=== PATIENT | male | born 1935 | race Caucasian/White ===

== ENCOUNTER 2020-01-01 10:52 | Observation (INO) | payer OTHER ==
[~2020-01-01] VITALS: Ht 177.8 cm; Wt 79.8 kg
[2020-01-01 11:25] LABS: BASOPHILS ABSOLUTE AUTO 0.02 K/mm3 (0.00-0.23); BASOPHILS PERCENT AUTO 0 % (0-2); EOSINOPHILS ABSOLUTE AUTO 0.23 K/mm3 (0.00-0.68); EOSINOPHILS PERCENT AUTO 3 % (0-6); Hematocrit 47.1 % (37.0-53.0); Hemoglobin 15.6 g/dL (13.5-17.5); IMMATURE GRAN ABSOLUTE AUTO 0.02 K/mm3 (0.00-0.10); IMMATURE GRAN PERCENT AUTO 0 % (0-1); LYMPHOCYTES PERCENT AUTO 19 % (21-46); MONOCYTES ABSOLUTE AUTO 0.72 K/mm3 (0.16-1.47); MONOCYTES PERCENT AUTO 10 % (4-13); Mean Corpuscular HGB 32.6 pg (26.0-34.0); Mean Corpuscular HGB Conc 33.1 g/dL (31.5-36.5); Mean Corpuscular Volume 98 fL (80-100); Mean Platelet Volume 9.8 fL (9.1-12.4); NEUTROPHILS ABSOLUTE AUTO 5.11 K/mm3 (1.96-9.15); NEUTROPHILS PERCENT AUTO 68 % (41-73); Platelet Count 233 K/mm3 (150-400); RDW Coefficient Variation 12.3 % (11.7-14.2); RDW Standard Deviation 44.4 fL (35.1-46.3); Red Blood Cell Count 4.79 M/mm3 (4.30-5.90)
[2020-01-01 11:44] LABS: Alanine Aminotransfer (ALT/SGP 38 U/L (12-78); Albumin, Blood 3.4 g/dL (3.4-5.0); Albumin/Globulin Ratio 0.8 (0.8-1.8); Alk Phos 90 U/L (50-136); Anion Gap 5 mmol/L (6-16); Aspartate Aminotrans (AST/SGOT 32 U/L (12-37); Bilirubin, Total 0.8 mg/dL (0.1-1.0); Blood Urea Nitrogen 16 mg/dL (8-24); CO2, Blood 29 mmol/L (21-32); Calcium, Blood 8.9 mg/dL (8.5-10.1); Chloride, Blood 106 mmol/L (98-108); Creatinine, Blood 0.94 mg/dL (0.60-1.20); Globulin, Blood 4.1 g/dL (2.2-4.0); Glomerular Filtration Rate >60 (60-); Glucose, Blood 117 mg/dL (70-99); International Normalized Ratio 1.01; Potassium, Blood 4.1 mmol/L (3.5-5.5); Prothrombin Time Results 10.8 Sec (9.7-11.5); Sodium, Blood 140 mmol/L (136-145); Total Protein, Blood 7.5 g/dL (6.4-8.2); Troponin I 0.255 ng/mL (0.000-0.040)
[2020-01-01] MEDS ORDERED: ELIQUIS5 MG PO (15:56)
[2020-01-01] MEDS ORDERED: DONEPEZIL HCL10 MG PO (17:00)
[2020-01-01] MEDS ORDERED: METO25 PO (17:01)
[2020-01-01] MEDS ORDERED: AMLO10 PO (17:03)
[2020-01-01] MEDS ORDERED: OMEP20ER PO (17:03)
[2020-01-01] MEDS ORDERED: Vitamin D2000 UNIT PO (17:04)
[2020-01-01] MEDS ORDERED: TOCO1000 PO (17:05)
[2020-01-01] MEDS ORDERED: B-121000 MC3 PO (17:05)
[2020-01-01] MEDS ORDERED: FERSU300 PO (17:06)
[2020-01-01] MEDS ORDERED: C COMPLEX1000 M1 PO (17:06)
--- NOTE | 2020-01-01 18:35 | NUR ---
ASSUMED CARE: PT ARRIVED FROM ED WITH HEPARIN GTT RUNNING. VERIFIED DOSE. DENIES CP AT THIS TIME. CALL TO BROOKE TO SEE IF CARDIOLOGY CONSULT IS NEEDED. BROOKE STATES TO TREND TROP FIRST PRIOR TO CONSULT. ORDERED [facility] COVERAGE DUE TO DIABETES HISTORY. NO ACUTE NEEDS A THIS TIME
[2020-01-01] MEDS ORDERED: MEMA10 PO (19:58)
--- NOTE | 2020-01-02 07:30 | NUR ---
ASSUMED PATIENT CARE. PATIENT SITTING COMFORTABLY IN BED, NO SIGNS OF ACUTE DISTRESS. CONVERSING WITH NURSING STAFF, JUAN.
--- NOTE | 2020-01-02 07:34 | NUR ---
patient admitted for NSTEMI. Patient's chest pain improved overnight and he claims that he is feeling much better this morning. Troponins remain stable but one is pending to be drawn. No acute events overnight or significant changes besides the improvement of the chest pain. No other concerns at this time.
[2020-01-02 08:31] LABS: BASOPHILS ABSOLUTE AUTO 0.04 K/mm3 (0.00-0.23); BASOPHILS PERCENT AUTO 0 % (0-2); EOSINOPHILS ABSOLUTE AUTO 0.22 K/mm3 (0.00-0.68); EOSINOPHILS PERCENT AUTO 2 % (0-6); Hematocrit 47.2 % (37.0-53.0); IMMATURE GRAN ABSOLUTE AUTO 0.02 K/mm3 (0.00-0.10); IMMATURE GRAN PERCENT AUTO 0 % (0-1); LYMPHOCYTES ABSOLUTE AUTO 0.99 K/mm3 (0.84-5.20); LYMPHOCYTES PERCENT AUTO 11 % (21-46); MONOCYTES ABSOLUTE AUTO 0.76 K/mm3 (0.16-1.47); MONOCYTES PERCENT AUTO 8 % (4-13); Mean Corpuscular HGB Conc 33.9 g/dL (31.5-36.5); Mean Corpuscular Volume 97 fL (80-100); Mean Platelet Volume 9.6 fL (9.1-12.4); NEUTROPHILS ABSOLUTE AUTO 7.22 K/mm3 (1.96-9.15); NEUTROPHILS PERCENT AUTO 78 % (41-73); Platelet Count 220 K/mm3 (150-400); RDW Coefficient Variation 12.1 % (11.7-14.2); RDW Standard Deviation 43.5 fL (35.1-46.3); Red Blood Cell Count 4.85 M/mm3 (4.30-5.90); White Blood Cell Count 9.25 K/mm3 (4.00-11.30)
[2020-01-02 08:58] LABS: Anion Gap 6 mmol/L (6-16); Blood Urea Nitrogen 15 mg/dL (8-24); Bun/Creatinine Ratio 16.3 (12.0-20.0); CHOL/HDL RATIO 2.9; CO2, Blood 25 mmol/L (21-32); Calcium, Blood 8.8 mg/dL (8.5-10.1); Chloride, Blood 108 mmol/L (98-108); Cholesterol 195 mg/dL (50-200); Creatinine, Blood 0.92 mg/dL (0.60-1.20); Glomerular Filtration Rate >60 (60-); Glucose, Blood 131 mg/dL (70-99); HDL Cholesterol 68 mg/dL (>39); LDL/HDL RATIO 1.7; Low Density Lipoprotein Chol 115 mg/dL (0-110); Sodium, Blood 139 mmol/L (136-145); Triglycerides 60 mg/dL (30-160); Troponin I 0.216 ng/mL (0.000-0.040); Very Low Density Lipoprot Chol 12 mg/dL (6-32)
--- NOTE | 2020-01-02 11:49 | NUR ---
PATIENT WOULD LIKE TO LEAVE SAWYERDR. MARTINES NOTIFIED. PATIENT REFUSES TELEMETRY, PATIENT REFUSES ECHO AT BEDSIDE. PATIENT DOES NOT COMPLAIN OF CHEST PAIN, NO SIGNS OF ACUTE DISTRESS, WCTM.
[2020-01-02] MEDS ORDERED: Aspirin EC81 MG PO (13:14)
[2020-01-02] MEDS ORDERED: Vitamin D2000 UNIT PO (13:14)
[2020-01-02] MEDS ORDERED: Isosorbide Mono30 MG PO (13:15)
--- NOTE | 2020-01-02 14:01 | NUR ---
PATIENT PROVIDED DISCHARGE INFO PER ALYSA PINA.
== END 2020-01-02 13:30 | disposition home or self-care (01) ==
LOC: ER 10:52 → PCU 10:53
PROVIDERS: Nurse Practitioner Acute Care; Student in an Organized Health Care Education/Training Program; ADMIT Internal Medicine
DX: R07.89 Other chest pain (principal); I48.91 Unspecified atrial fibrillation; R55 Syncope and collapse; I10 Essential (primary) hypertension; E78.5 Hyperlipidemia, unspecified; E11.9 Type 2 diabetes mellitus without complications; K21.9 Gastro-esophageal reflux disease without esophagitis; F03.90 Unspecified dementia, unspecified severity, without behavioral disturbance, psychotic disturbance, mood disturbance, and anxiety; Z86.73 Personal history of transient ischemic attack (TIA), and cerebral infarction without residual deficits; Z87.891 Personal history of nicotine dependence
CPT/HCPCS: 36415; 70450; 71045; 80048; 80053; 80061; 82947; 83735; 83880; 84443; 84484; 85025; 85610; 85730; 93005; 93010; 96374; 96376; 99285-25; A9270-GY; G0378; J1644

== ENCOUNTER 2020-05-12 13:38 | Inpatient (IN) | payer OTHER, MEDICARE ==
[~2020-05-12] VITALS: Ht 175.3 cm; Wt 90.0 kg
[~2020-05-12 13:38] MED LIST: AMLO10 PO; Aspirin EC81 MG PO; B-121000 MC3 PO; C COMPLEX1000 M1 PO; DONEPEZIL HCL10 MG PO; ELIQUIS5 MG PO; FERSU300 PO; Isosorbide Mono30 MG PO; MEMA10 PO; METO25 PO; OMEP20ER PO; TOCO1000 PO; Vitamin D2000 UNIT PO
[2020-05-12 14:38] LABS: BASOPHILS ABSOLUTE AUTO 0.04 K/mm3 (0.00-0.23); BASOPHILS PERCENT AUTO 1 % (0-2); EOSINOPHILS ABSOLUTE AUTO 0.06 K/mm3 (0.00-0.68); EOSINOPHILS PERCENT AUTO 1 % (0-6); Hematocrit 49.6 % (37.0-53.0); Hemoglobin 15.6 g/dL (13.5-17.5); IMMATURE GRAN ABSOLUTE AUTO 0.02 K/mm3 (0.00-0.10); IMMATURE GRAN PERCENT AUTO 0 % (0-1); LYMPHOCYTES ABSOLUTE AUTO 1.13 K/mm3 (0.84-5.20); LYMPHOCYTES PERCENT AUTO 16 % (21-46); MONOCYTES PERCENT AUTO 9 % (4-13); Mean Corpuscular HGB 31.1 pg (26.0-34.0); Mean Corpuscular HGB Conc 31.5 g/dL (31.5-36.5); Mean Corpuscular Volume 99 fL (80-100); Mean Platelet Volume 9.7 fL (9.1-12.4); NEUTROPHILS ABSOLUTE AUTO 5.11 K/mm3 (1.96-9.15); NEUTROPHILS PERCENT AUTO 73 % (41-73); Platelet Count 242 K/mm3 (150-400); RDW Coefficient Variation 14.5 % (11.7-14.2); Red Blood Cell Count 5.01 M/mm3 (4.30-5.90); White Blood Cell Count 6.96 K/mm3 (4.00-11.30)
[2020-05-12 15:02] LABS: Anion Gap 4 mmol/L (6-16); Blood Urea Nitrogen 21 mg/dL (8-24); Bun/Creatinine Ratio 17.2 (12.0-20.0); CO2, Blood 26 mmol/L (21-32); Calcium, Blood 8.9 mg/dL (8.5-10.1); Chloride, Blood 110 mmol/L (98-108); Creatinine, Blood 1.22 mg/dL (0.60-1.20); Glomerular Filtration Rate >60 (60-); Glucose, Blood 105 mg/dL (70-99); Sodium, Blood 140 mmol/L (136-145)
[2020-05-12 16:20] LABS: International Normalized Ratio 1.22; Prothrombin Time Results 12.9 Sec (9.7-11.5)
[2020-05-12 16:28] LABS: CHOL/HDL RATIO 3.5; Cholesterol 131 mg/dL (50-200); HDL Cholesterol 37 mg/dL (>39); LDL/HDL RATIO 2.2; Low Density Lipoprotein Chol 83 mg/dL (0-110); Triglycerides 57 mg/dL (30-160); Very Low Density Lipoprot Chol 11 mg/dL (6-32)
--- NOTE | 2020-05-12 17:33 | NUR ---
Echocardiogram completed.
--- NOTE | 2020-05-12 18:42 | NUR ---
SHIFT SUMMARY ED ADMIT THIS EVENING. PATIENT SHORT OF BREATH W/ACTIVITY. DENIES CHEST PAIN AND NAUSEA. UP SBA TO BR FOR LINE MANAGEMENT. SETTLED INTO ROOM. ORIENTED BUT FORGETFUL. HEPARIN DRIP RUNNING AT 13 U/KG.
[2020-05-12 22:12] LABS: Adenovirus Not Detected (NOT DETECT); Bordetella pertussis Not Detected (NOT DETECT); Chlamydophila pneumoniae Not Detected (NOT DETECT); Coronavirus 229E Not Detected (NOT DETECT); Coronavirus HKU1 Not Detected (NOT DETECT); Coronavirus NL63 Not Detected (NOT DETECT); Coronavirus OC43 Not Detected (NOT DETECT); Human Metapneumovirus Not Detected (NOT DETECT); Human Rhinovirus/Enterovirus Not Detected (NOT DETECT); Influenza A/2009-H1 Not Detected (NOT DETECT); Influenza A/H1 Not Detected (NOT DETECT); Influenza A/H3 Not Detected (NOT DETECT); Influenza B Not Detected (NOT DETECT); Mycoplasma pneumoniae Not Detected (NOT DETECT); Parainfluenza Virus 1 Not Detected (NOT DETECT); Parainfluenza Virus 2 Not Detected (NOT DETECT); Parainfluenza Virus 3 Not Detected (NOT DETECT); Parainfluenza Virus 4 Not Detected (NOT DETECT); Respiratory Syncytial Virus Not Detected (NOT DETECT); SARS-Cov-2 (COVID-19), BioFire Not Detected (NOT DETECT)
[2020-05-12] MEDS ORDERED: AMLO10 PO (22:21)
[2020-05-12] MEDS ORDERED: Vitamin B-121000 MCG PO (22:21)
[2020-05-12] MEDS ORDERED: Vitamin D2000 UNIT PO (22:21)
[2020-05-12] MEDS ORDERED: DONEPEZIL HCL10 MG PO (22:22)
[2020-05-12] MEDS ORDERED: FERSU300 PO (22:22)
[2020-05-12] MEDS ORDERED: FURO20 PO (22:22)
[2020-05-12] MEDS ORDERED: METO25 PO (22:23)
[2020-05-12] MEDS ORDERED: OMEP20ER PO (22:23)
[2020-05-12] MEDS ORDERED: TOCO1000 PO (22:24)
[2020-05-12] MEDS ORDERED: SULFAMETHOXAZO1 EACH PO (22:24)
[2020-05-12] MEDS ORDERED: ASCO500 PO (22:25)
[2020-05-12] MEDS ORDERED: GINKGO60 MG PO (22:25)
[2020-05-13 02:35] LABS: BASOPHILS ABSOLUTE AUTO 0.04 K/mm3 (0.00-0.23); BASOPHILS PERCENT AUTO 1 % (0-2); EOSINOPHILS ABSOLUTE AUTO 0.12 K/mm3 (0.00-0.68); EOSINOPHILS PERCENT AUTO 2 % (0-6); Hematocrit 50.3 % (37.0-53.0); Hemoglobin 15.6 g/dL (13.5-17.5); IMMATURE GRAN ABSOLUTE AUTO 0.02 K/mm3 (0.00-0.10); IMMATURE GRAN PERCENT AUTO 0 % (0-1); LYMPHOCYTES ABSOLUTE AUTO 1.21 K/mm3 (0.84-5.20); LYMPHOCYTES PERCENT AUTO 16 % (21-46); MONOCYTES PERCENT AUTO 11 % (4-13); Mean Corpuscular HGB 30.8 pg (26.0-34.0); Mean Corpuscular Volume 99 fL (80-100); Mean Platelet Volume 9.8 fL (9.1-12.4); NEUTROPHILS ABSOLUTE AUTO 5.25 K/mm3 (1.96-9.15); NEUTROPHILS PERCENT AUTO 71 % (41-73); Platelet Count 226 K/mm3 (150-400); RDW Coefficient Variation 14.5 % (11.7-14.2); RDW Standard Deviation 52.7 fL (35.1-46.3); Red Blood Cell Count 5.06 M/mm3 (4.30-5.90); White Blood Cell Count 7.44 K/mm3 (4.00-11.30)
[2020-05-13 03:07] LABS: Albumin, Blood 2.9 g/dL (3.4-5.0); Anion Gap 7 mmol/L (6-16); Blood Urea Nitrogen 24 mg/dL (8-24); Bun/Creatinine Ratio 17.5 (12.0-20.0); CO2, Blood 25 mmol/L (21-32); Calcium, Blood 9.2 mg/dL (8.5-10.1); Chloride, Blood 110 mmol/L (98-108); Creatinine, Blood 1.37 mg/dL (0.60-1.20); Glomerular Filtration Rate 53 (60-); Glucose, Blood 102 mg/dL (70-99); Magnesium, Blood 2.4 mg/dL (1.6-2.4); Phosphorus, Blood 4.1 mg/dL (2.5-4.9); Potassium, Blood 4.6 mmol/L (3.5-5.5); Sodium, Blood 142 mmol/L (136-145)
--- NOTE | 2020-05-13 06:15 | NUR ---
SHIFT SUMMARY PT IS AN 84 Y/O MALE, ADMITTED FOR HYPOXEMIC RESPIRATORY FAILURE. HE IS A&O X 3, FORGETFUL. NO C/O ACUTE PAIN, NAUSEA OR SOB, THOUGH PT APPEARS TO HAVE OCCASIONAL INCREASED WORK OF BREATHING. CURRENTLY ON 6L OF O2 VIA NC. PT FINGERTIPS ARE CYANOTIC. PER FINISHING DEPARTMENT SUPERVISOR PT IS IN AFIB IN THE 100S. VITAL SIGNS OTHERWISE STABLE. TROPONIN IS ELEVATED THOUGH TRENDING DOWN, LAST WAS 8.62. PT IS ON A HEPARIN DRIP, CURRENTLY AT 15 U/KG/HR OR 27 ML/HR. NO ACUTE CHANGES IN PT CONDITION NOTED DURING THE NIGHT. WILL CONTINUE TO MONITOR AND TREAT PER EMAR UNTIL HAND OFF TO DAY SHIFT RN.
--- NOTE | 2020-05-13 08:30 | NUR ---
PT PLEASANT COOP A/O TO GENERAL QUESTIONS. DETAILS NOT ABLE. DEMENTIA. 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 RECOGNIZED DAUGHTER, BUT NOT HER . UNABLE TO TELL ME PRESIDENT. QUITE ANVIK. DENIES PAIN, NO SOB WHILE IN BED. FINGERS AND TOES CYANOTIC. CAP REFILL 4-6 SEC. IS AWARE. H/R IRREG, NO MURMER NOTED. HX AFIB. PER TELE AFIB 109. LUNGS CLEAR, RESP EASY, UNLABORED ON 6L O2. BT X4 LAST BM YEST. VOIDS INCONT WITH OCC URINAL USE. SBA TO 1 ASST TO BATHROOM. BED IN LOW POSITION, CALL LITE IN REACH. BED ALARM ON FOR SAFETY.
--- NOTE | 2020-05-13 12:07 | NUR ---
D/C HEPARIN PER DR JOYA
--- NOTE | 2020-05-13 12:12 | NUR ---
CALLED DR SAMANTA BECERRA TO D/C CONT BIOX.
--- NOTE | 2020-05-13 17:19 | NUR ---
PT HAS BEEN PLEASANT AND COOP TODAY. HAS GENERAL ORIENTATION, HAS HARD TIME WITH DETAILS. DENIES PAIN, DENIES CHEST PAIN/PRESSURES. DR DID D/C HEPARIN TODAY. STATES HARM SORE WHERE HEPARIN WAS INFUSING. WRAPPED IN WARM BLANKET. STATES HELPS SOME. DR STARTED XARELTO TODAY. DAUGHTER WAS IN TODAY. VISITED FOR SOME TIME. IS PLEASANT. NO NEW CONSERNS TODAY. BED IN LOW POSITION, CALL LITE IN REACH, BED ALARM ON FOR SAFETY.
--- NOTE | 2020-05-13 19:10 | NUR ---
ASSUMED CARE RECEIVED REPORT FROM ALYSA WHITTAKER. ASSUMED CARE OF PT. PT RESTING COMFORTABLY AT THIS TIME, NO S/S ACUTE DISTRESS NOTED, RESPS E/U, DENIES SOB OR DYSPNEA. DENIES NEEDS. CALL LIGHT, POSSESSIONS IN REACH, BED IN LOW POSITION WITH ALARMS ON. WCTM.
--- NOTE | 2020-05-14 05:48 | NUR ---
SHIFT SUMMARY PT A&O TO SELF, SURROUNDINGS. PLEASANT BUT FORGETFUL AT TIMES, AND ATTEMPTS TO STAND UP BESIDE BED BY SELF TO USE URINAL; EASILY RE-DIRECTABLE. RESTING COMFORTABLY AT THIS TIME, NO S/S ACUTE DISTRESS NOTED, WAS MONITORED EVERY 1-2 HOURS WITH NEEDS MET. VS REVIEWED, WNL, AFEBRILE. 02 SATS STABLE ON 6L/NC. PT DENIES SOB, DYSPNEA. DENIES PAIN OR DISCOMFORT. ENCOURAGED TO ELEVATE BLE ON PILLOWS WHILE IN BED TO DECREASE EDEMA, PT AGREEABLE. DENIES NEEDS AT THIS TIME. CALL LIGHT, POSSESSIONS IN REACH, BED IN LOW POSITION WITH ALARMS ON. WILL CONTINUE TO MONITOR AND PROVIDE CARE UNTIL REPORT GIVEN TO DAY RN.
[2020-05-14 08:44] LABS: BASOPHILS ABSOLUTE AUTO 0.02 K/mm3 (0.00-0.23); BASOPHILS PERCENT AUTO 0 % (0-2); EOSINOPHILS ABSOLUTE AUTO 0.07 K/mm3 (0.00-0.68); EOSINOPHILS PERCENT AUTO 1 % (0-6); Hematocrit 47.6 % (37.0-53.0); Hemoglobin 15.1 g/dL (13.5-17.5); IMMATURE GRAN ABSOLUTE AUTO 0.04 K/mm3 (0.00-0.10); IMMATURE GRAN PERCENT AUTO 1 % (0-1); LYMPHOCYTES ABSOLUTE AUTO 0.93 K/mm3 (0.84-5.20); LYMPHOCYTES PERCENT AUTO 12 % (21-46); MONOCYTES PERCENT AUTO 8 % (4-13); Mean Corpuscular HGB Conc 31.7 g/dL (31.5-36.5); Mean Corpuscular Volume 98 fL (80-100); Mean Platelet Volume 9.3 fL (9.1-12.4); NEUTROPHILS ABSOLUTE AUTO 6.22 K/mm3 (1.96-9.15); NEUTROPHILS PERCENT AUTO 79 % (41-73); Platelet Count 197 K/mm3 (150-400); RDW Coefficient Variation 14.5 % (11.7-14.2); RDW Standard Deviation 52.3 fL (35.1-46.3); Red Blood Cell Count 4.87 M/mm3 (4.30-5.90); White Blood Cell Count 7.88 K/mm3 (4.00-11.30)
[2020-05-14 08:57] LABS: Albumin, Blood 2.6 g/dL (3.4-5.0); Anion Gap 10 mmol/L (6-16); Blood Urea Nitrogen 30 mg/dL (8-24); Bun/Creatinine Ratio 26.5 (12.0-20.0); CO2, Blood 22 mmol/L (21-32); Calcium, Blood 8.6 mg/dL (8.5-10.1); Chloride, Blood 107 mmol/L (98-108); Creatinine, Blood 1.13 mg/dL (0.60-1.20); Glomerular Filtration Rate >60 (60-); Glucose, Blood 93 mg/dL (70-99); Phosphorus, Blood 3.5 mg/dL (2.5-4.9); Potassium, Blood 4.5 mmol/L (3.5-5.5); Sodium, Blood 139 mmol/L (136-145)
[2020-05-14 15:02] LABS: PCO2 Arterial 36.7 mmHg (35-45); PO2 Arterial 76.8 mmHg (80-100); pH Blood Arterial 7.44 (7.35-7.45)
--- NOTE | 2020-05-14 17:30 | NUR ---
Clinical Visit: Pt is alert, oriented. He denies pain, shortness of breath, and anxiety. He has a dusky appearance. Introduced palliative care, role in the hospital. Short visit, as he states that he was napping and asks me to come back in the morning when he is most awake. Agreed to meet tomorrow morning. Reviewed with Dr. Beebe. Pt is agreeable to further treatment of his heart condition. Will remain available and follow up with pt tomorrow morning. Dr. Beebe just updated him on his diagnosis and pt will need continued medical care.
--- NOTE | 2020-05-14 18:13 | NUR ---
PT HAS BEEN AOX3 WITH CONFUSION. PT STARTED SHIFT ON 5L OF O2 AND DR ENGLAND REQUESTED O2 TO BE TITRATED DOWN. PT WAS NOT SHOWING UP WELL WITH ANY OF THE O2 MONITORS, BUT SEEMED TO BE TOLERATING THE TITRATION. PT THEN HAD TAKEN HIS O2 OFF AND AGAIN DENIED SOB AND WAS DOING WELL IN HIS ROOM. DUE TO NOT BEING ABLE TO GET ACCURATE O2 READING DR ENGLAND HAD AN ABG ORDERED AND PT IS DOING WELL ON . PT IS EATING DINNER AT THIS TIME WITH DAUGHTER IN ROOM. WILL CONTINUE TO MONITOR.
--- NOTE | 2020-05-14 19:00 | NUR ---
ASSUMED CARE RECEIVED REPORT FROM ALYSA MON. ASSUMED CARE OF PT. RESTING COMFORTABLY, NO S/S ACUTE DISTRESS NOTED. RESPS E/U. DENIES PAIN OR NEEDS AT THIS TIME. CALL LIGHT, POSSESSIONS IN REACH, BED IN LOW POSITION WITH ALARMS ON. WCTM.
--- NOTE | 2020-05-15 06:15 | NUR ---
SHIFT SUMMARY PT RESTING COMFORTABLY, NO S/S ACUTE DISTRESS NOTED. WAS MONITORED EVERY 1-2 HOURS WITH NEEDS MET. VS REVIEWED, WNL, 02 SATS STABLE ON RA, REFUSING TO WEAR NC. PT HAS BEEN INCREASINGLY CONFUSED T/O NIGHT, PULLING OFF TELE. AMBULATED TO BATHROOM WITH 1 ASSIST AND FWW, TOLERATED WELL. NO ACUTE CHANGES IN HEART RHYTHM REPORTED T/O NIGHT. PT DENIES PAIN OR NEEDS AT THIS TIME. CALL LIGHT, POSSESSIONS IN REACH, BED IN LOW POSITION WITH ALARMS ON. REPORT GIVEN TO YAA Curtis RN.
[2020-05-15 08:49] LABS: Albumin, Blood 2.5 g/dL (3.4-5.0); Anion Gap 7 mmol/L (6-16); Blood Urea Nitrogen 31 mg/dL (8-24); Bun/Creatinine Ratio 27.7 (12.0-20.0); CO2, Blood 26 mmol/L (21-32); Calcium, Blood 8.9 mg/dL (8.5-10.1); Chloride, Blood 109 mmol/L (98-108); Creatinine, Blood 1.12 mg/dL (0.60-1.20); Glomerular Filtration Rate >60 (60-); Glucose, Blood 100 mg/dL (70-99); Magnesium, Blood 2.1 mg/dL (1.6-2.4); Phosphorus, Blood 3.4 mg/dL (2.5-4.9); Potassium, Blood 4.6 mmol/L (3.5-5.5); Sodium, Blood 142 mmol/L (136-145)
[2020-05-15 12:26] LABS: International Normalized Ratio 1.52; Prothrombin Time Results 15.9 Sec (9.7-11.5)
--- NOTE | 2020-05-15 16:31 | NUR ---
Clinical Visit: Pt is alert, oriented. Granddaughter is at bedside. Discussed POLST and advance directives. [facility] - he does not have a POLST form. Instructed on POLST form and this will be sent home for him to complete. Granddaughter is actually in the medical profession and assists with filling POLST forms out all the time. Fax to [place] for pt's advance directive.
--- NOTE | 2020-05-15 17:56 | NUR ---
PT AOX3 TODAY WITH A BIT MORE CONFUSION. PT HAS BEEN GETTING OUT OF MORE AND WAS WANTING TO TAKE HIS GOWN OF A LOT. PT ALSO TOOK APART HIS KPAD LINE WITHOUT KNOWING WHY HE HAD DONE THIS. PT IS A STANDBY ASSIST TO RESTROOM AND NEEDS BED ALARM HE WILL GET UP HOOK TO IV. PT DENIES PAIN OR SOB WILL CONTINUE TO MONITOR CALL LIGHT WITHIN REACH.
--- NOTE | 2020-05-15 19:15 | NUR ---
ASSUMED CARE RECEIVED REPORT FROM ALYSA MON. ASSUMED CARE OF PT. ATTEMPTING TO EXIT BED, RE-DIRECTED BACK TO BED, PT APPEARS INCREASINGLY CONFUSED. SITUATED IN BED AND COVERED C BLANKETS. NO OTHER S/S ACUTE DISTRESS NOTED. HEPARIN DRIP VERIFIED AND ONGOING AT THIS TIME. PT DENIES PAIN OR NEEDS. CALL LIGHT,POSSESSIONS IN REACH, BED IN LOW POSITION WITH ALARMS ON. WCTM.
--- NOTE | 2020-05-16 00:10 | NUR ---
REPORT GIVEN TO ALYSA ACKERMAN. PT TRANSFERRED TO 347. HEPARIN DRIP STOPPED AT THIS TIME, AWAITING INSTRUCTIONS FROM PHARMACY D/T CONTINUED CRITICALLY HIGH APTT, CONTINUE TO MONITOR.
--- NOTE | 2020-05-16 00:27 | NUR ---
PT TRANSFERRED TO ROOM 347 FROM ROOM 355. RECEIVED REPORT FROM ALYSA NUR. PT ASLEEP AT THIS TIME. ON O2 2LPM VIA NC. TELE IN PLACE, AFIB IN 80's. NO C/O PAIN OR ANY DISCOMFORT. PT NPO AFTER MIDNIGHT ORDERED. AWAITING NEW ORDERS FROM PHARMACY REGARDING HEP DRIP.
--- NOTE | 2020-05-16 04:48 | NUR ---
CAMP DISHWASHER SUMMARY PT A&OX3, PLEASANTLY CONFUSED, EASILY REDIRECTABLE. MULTIPLE ATTEMPTS OF BED EXITING AND TAKING OFF TELE STICKERS AND NC. PT ON HEPARIN DRIP ORDERED. NO C/O PAIN OR ANY DISCOMFORT. DENIES CP, TELE AFIB 80's. SOB NOTED WITH EXERTION, PT ON 2LPM OF O2 VIA NC, SATS AT 90-96%. DENIES N&V. PT CALM AND RESTED IN BED AT THIS TIME. BED AT LOWEST POSITION, BED ALARM ON, CALL LIGHT WITHIN REACH.
[2020-05-16 09:34] LABS: Albumin, Blood 2.8 g/dL (3.4-5.0); Anion Gap 7 mmol/L (6-16); Blood Urea Nitrogen 40 mg/dL (8-24); Bun/Creatinine Ratio 35.4 (12.0-20.0); CO2, Blood 29 mmol/L (21-32); Calcium, Blood 9.2 mg/dL (8.5-10.1); Chloride, Blood 106 mmol/L (98-108); Creatinine, Blood 1.13 mg/dL (0.60-1.20); Glomerular Filtration Rate >60 (60-); Glucose, Blood 87 mg/dL (70-99); Magnesium, Blood 2.1 mg/dL (1.6-2.4); Phosphorus, Blood 4.2 mg/dL (2.5-4.9); Potassium, Blood 4.4 mmol/L (3.5-5.5); Sodium, Blood 142 mmol/L (136-145)
--- NOTE | 2020-05-16 16:44 | NUR ---
SHIFT SUMMARY- PT A/O TO PERSON, PLACE AND YEAR. PT VERY IMPUSLIVE, NEEDS FREQUENT REMINDERS. PT SETTING OFF ALARMS, PULLING OFF TELE MULTIPLE TIMES AND UNHOOKING IV AT TIMES. PT PLEASANT AND COOPERATIVE WHEN REDIRECTED AND APPEARS TO UNDERSTAND BUT THEN WILL CONTINUOUSLY REPEAT. PT DENIES ANY PAIN. LS CLEAR, ON RA. DRY COUGH NOTED, PT REPORTS FROM [place]. TELE AFIB WITH PVC'S IN THE 90'S, PT DENIES ANY CHEST PAIN. PT ON HEPARIN GTT. 2+ BLE EDEMA. PLAN IS FOR ANGIO TOMORROW HOWEVER DAUGHTER HAS CONCERNS THAT PT WOULD NOT ACTUALLY WANT THIS DONE, PALLIATIVE CARE IN TALKING WITH PT AND DAUGHTER AT THIS TIME. DAUGHTER REPORTS PT HAS VASCULAR DEMENTIA AND HAS NOT BEEN CARING FOR HIS ANIMALS APROPRIATELY AT HOME, HAS NOT BEEN TAKING HIS MEDICATIONS SINCE NOVEMBER AND DOES NOT THINK HE QUITE UNDERSTANDS THE PROCEDURE. PALLIATIVE CARE NURSE DAE REPORTS SHE WILL UPDATE DR ENGLAND AFTER THERE CONVERSATION. THE DAUGHTER DOES HAVE POA AND THERE IS AN ADVANCED DIRECTIVE IN [facility]ACE FROM THE [facility] THEY ARE REVIEWING AT THIS TIME.
--- NOTE | 2020-05-16 18:27 | NUR ---
PT TRANSITIONED TO COMFORT CARE. DNR CODE STATUS VERIFIED AND PURPLE WRISTBAND APPLIED. TELE DC'D AND HEPARIN GTT STOPPED AT THIS TIME.
--- NOTE | 2020-05-16 18:30 | NUR ---
INITIAL [facility] CARE VISIT AND MEETING WITH PT'S MEDICAL POA, HERMAN VILLATORO. Pt's RN called me to room after leopoldo expressed concern that planned medical intervention and procedure for tomorrow am may not be in agreement with pt's medical POA for healthcare document completed at the [facility]. We received a copy of pt's medical POA this am by fax from the [facility]. I reviewed this with pt's RN and pt's daughter, as well as Dr after my visit. Our current orders for FULL CODE are not in agreement with his AD and leopoldo, requests DNR. Leopoldo is named as his surrogate decision maker with grandNathaly villatoro, as an alternate. Herman phoned both her leopoldo, Nathaly and her brother after our conversation and updated them on current echo findings, etc. All three family members and decision makers are in favor of following pt's advanced directive. A copy of AD placed on pt's chart and a copy was sent to medical records for scanning into EMR. Herman Villatoro demonstrating great cg stress and fatigue. She reports that pt left our hospital AMA last time and had quit taking medications and stopped his normal self care and care of his ranch animals over the past 6-12 months. He has a dx of vascular dementia, not present when he completed his AD. Family has been working on conservRevstr to help care for him, home & his ranch/animals. Pt has vacilated between not letting his daughter on the property to help and demanding she be there and threatening her, per Herman. Mane was admitted in respiratory and congestive heart failure after an acquaintance visited & insisted he be evaluated in ER, brought him in. He currently has a-fib, severe Aortic stenosis & CHF with an EF of 15-20% by echo done here on this admission. RN & leopoldo report that Pt presents well at times. Pt has become increasingly confused today, restless & more difficult to redirect, trying to get out of bed and remove tele and iv at times. I introduced myself to pt but he was not interactive in conversation and watched TV or slept during our visit. He is very hard of hearing but even when he could hear me he did not appear to understand when I asked if he'd like to talk about the care he wanted. He was unaware he was having a angiogram or procedure of any kind tomorrow. After a long conversation re: all of the options and benefits of proceeding with angiogram, conservative medical management or EOL care, Leopoldo and family express that pt just wants to be home, would never want a life vest or agressive tx/intervention prior to his dementia and they are requesting comfort care and assist with a hospice d/c plan when CM are available. Report called to and VO obtained and entered for comfort measures and hospice plan of care. Leopoldo seems relieved. She welcomed a network operations manager visit when offered for both her and her dad. Job Tracer arrived when I was finishing up my visit and explaining changes in orders and what to expect with comfort care, including that additional family could visit if covid screening passed, no further monitoring and testing cardiac function, frequent comfort assessment and treatment of s/s. Leopoldo asked about PO medications and I explained if pt willing and wants to take them, they are ordered and will be offered. Plan to f/u in am for s/s assessment. T/c to CM and message left with request for assist tomorrow with hospice plans for home or [facility]. RN aware of changes/orders and included in discussions t/o my visit.
--- NOTE | 2020-05-16 18:42 | NUR ---
Initial spiritual care note: Met with pt's dtr at bedside. She was tearful and talkative. Fearful that pt is not "saved". We spoke at length about this and she responded well to gentle high school counselor and exploration of bharati. Prayer with dtr. Pt non-hinduism and according to dtr "doesn't want to hear about any of that." Pt happily ate his dinner, totally ignoring our conversation. He appears confused and had to continually be reminded not to get up or pull at lines. Dtr is clearly physically and emotionally exhausted trying to care for her dad, the ranch, and her job. Encouraged going home and resting and assured her of excellent care and attention by [facility] team. We had an easy rapport and I will remain available.
--- NOTE | 2020-05-17 05:37 | NUR ---
SHIFT SUMMARY- PT. COMFORT CARE, PLEASANTLY CONFUSED AND IMPULSIVE T/O THE NIGHT. NO COMPLAINTS THIS SHIFT, SLEPT ON/OFF DURING THE NIGHT. NO APPARENT DISTRESS NOTED. PT. SBA TO BATHROOM, CONT/INCONT. DENIES NEEDS AT THIS TIME. CALL LIGHT WITHIN REACH, SIDE RAILS UPX2, AND BED ALARM ON FOR SAFETY. WILL CONT TO MONITOR.
--- NOTE | 2020-05-17 07:38 | NUR ---
DR DANG NOTIFIED THIS AM THAT PT WENT COMFORT CARE STATUS LAST EVENING, PER DR DANG WILL CONTINUE WITH MEDICAL THERAPY.
--- NOTE | 2020-05-17 08:13 | NUR ---
AM ASSESSMENT- PT A/O TO SELF AND PLACE, UNSURE OF DATE. PT DENIES ANY COMPLAINTS. LS CLEAR, ON RA. 2+ BLE EDEMA NOTED. PT COMFORT CARE AT THIS TIME, DNR WRISTBAND ON RIGHT WRIST. BED ALARM ON, PT RESTING AT THIS TIME.
--- NOTE | 2020-05-17 14:10 | NUR ---
Comfort Care visit - Case conferenced early this am with pt's RN and also Taina YEAGER, who is researching care options and assist thru [facility] as leopoldo had requested. She is reaching out to Leopoldo, Amanda, also. Pt is sitting upright on side of bed with no clothes on. He is slightly restless but per RN mostly pleasantly confused and directable. He did not remember anything re: previously planned procedure. He does not know why he is here but is not distressed about being in the hospital this am. No family at bedside the two times I came by the room. Pt is not reporting pain or distressing s/s and denies pain when asked by nursing staff during assessments. Palliative Care to remain available.
--- NOTE | 2020-05-17 16:38 | NUR ---
SHIFT SUMMARY- PT ON COMFORT CARE. PT HAS BEEN A/O TO PERSON AND PLACE, INCREASED CONFUSION AT TIMES AND NEEDS REDIRECTING BUT PLEASANT WITH CARE. LS CLEAR, ON RA. PT SOB WITH REST AND INCREASED WITH EXERTION, PT POSITIONAL BREATHING AND SITS UP FREQUENTLY. 2+ BLE EDEMA NOTED. PT HAS DENIES ANY PAIN T/O THE DAY. DISCHARGE PLANNING LOOKING [facility]. SBA UP TO BATHROOM, NO OTHER ACUTE CHANGES THIS SHIFT.
--- NOTE | 2020-05-17 17:18 | NUR ---
PT SITTING UP VISITING WITH FAMILY AT BEDSIDE.
--- NOTE | 2020-05-17 17:37 | NUR ---
Spiritual care note: No family present at time of visit. Mr. Lechuga was confused, but calm. He was unable to hold lucid conversation and said very little that I could understand. He said he was tired and smiled. He is not sikhism. He denied pain/concerns and appears well cared-for by nursing. I will remain available to pt and family.
--- NOTE | 2020-05-17 18:52 | NUR ---
PT NOTED TO HAVE INCREASED SOB THIS EVENING, ATTEMPTED TO GET PT TO SIT UP IN RECLINER BUT DID NOT WANT TO. PT SOB WITH REST, TALKING IN SHORT SENTENCES. PRN ROXANOL GIVEN AT THIS TIME. WILL REPORT OFF TO NIGHT RN.
--- NOTE | 2020-05-18 04:46 | NUR ---
SHIFT SUMMARY: PT IS ALERT AND ORIENTED X 2. PT ON COMFORT MEASURES ONLY. PT VISIBLY SHORT OF BREATH ON ONE OCCASION, GAVE PRN MORPHINE FOR AIR HUNGER, SEEMED TO HELP. PT WALKING TO THE BATHROOM ON MULTIPLE OCCASIONS WITH MINIMAL TO NO ASSIST. PT DENIES PAIN, NAUSEA, AND VOMITING. BED IN LOW POSITION, CALL LIGHT WITHIN REACH. WILL REPORT TO DAY NURSE.
--- NOTE | 2020-05-18 08:30 | NUR ---
PT IS ON COMFORT CARE. PT PLEASANT, A/O X2, MAYBE. VERY [place]. OKAY ON BASIC GENERAL QUEST. BUT UNABLE TO GIVE DETAILS. 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 TELLS ME DAUGHTER NAME IS HERMAN. H/R IS IRREG, NO MURMER NOTED. LUNGS CLEAR, RESP EASY, UNLABORED WHEN IN BED, SOB WITH EXERTION. TRIED OXIMETRY TO FIND SATS. UNABLE TO OBTAIN READING. TRIED ON TOES, MULT FINGERS. CYANOTIC. PT RESPONDS WELL. ANSWERS QUESTIONS. TALKS PLEASANT, PT ON 2L O2 WHEN ALLOWS. OFTEN TAKES OFF N/C. WALKS TO BATHROOM INDEPENDANT TO SBA. BED IN LOW POSITION, RIDGE LITE IN REACH, BED ALARM ON FOR SAFETY
--- NOTE | 2020-05-18 16:45 | NUR ---
PT RESTING TODAY. ATTEMPTED TO KEEP OXYGEN ON PT, BUT HE PULLS OFF REGULARLY. NO C/O PAIN TODAY. HAS NAPPED THIS AFTERNOON AND WAS UP FOR A WHILE. PRESENTLY NAPPING, RESP EASY, UNLABORED. ON 2L O2 AT THIS MOMENT. HAS BEEN SBA TO BATHROOM TODAY. NO NEW CONCERNS AT THIS TIME. BED IN LOW POSITIOIN, CALL LITE IN REACH, BED ALARM ON FOR SAFETY
--- NOTE | 2020-05-19 10:06 | NUR ---
Pt resting in bed with his eyes closed upon arrival. This RN did not disturb Pt at this time. Pt appears comfortable with no S/S of distress at this time. Palliative Care will remain available.
--- NOTE | 2020-05-19 18:35 | NUR ---
Shift Summary Patient has been sleepy all day. AM meds have been held, patient did not eat any meals this shift. Turn/Reposition Q2H and as needed for comfort. Patient pulled nasal cannula off. O2 sats checked and found to be 100% on RA. Daughter and granddaughter visited. No acute new concerns. Comfort care.
--- NOTE | 2020-05-20 06:07 | NUR ---
SHIFT SUMMARY COMFORT CARE. OPENS EYES TO NAME & VERBAL STIMULI. FOLLOWS SIMPLE DIRECTIONS. CONFUSED. [place]. SLOW TO RESPOND. REPORTS "A LITTLE PAIN" & IS FOUND MOANING, GRIMACING, GRUNTING & WORKING HARD TO BREATH OCCASIONALLY, MEDICATED 3X c ROXANOL PER ORDERS. NO S/S OF N/V. INCONT OF URINE, CHANGED & REPOSITIONED. CALL LIGHT IN REACH & BED ALARM IN PLACE FOR SAFETY. WILL MONITOR.
--- NOTE | 2020-05-20 15:36 | NUR ---
FAMILY VISITED BRIEFLY WHILE THE PT WAS SLEEPING.
--- NOTE | 2020-05-20 18:31 | NUR ---
SHIFT SUMMARY PT A/O X1 AND HARD OF HEARING. PT IS ON COMFORT CARE. BECAME PAINFUL AND AGITATED ONCE THIS SHIFT AND MEDICATED PER EMR. HAS BEEN RESTING COMFORTABLY IN BED FOR THE MAJORITY OF THE SHIFT. APPEARS TO BE VERY COMFORTABLE.
--- NOTE | 2020-05-21 04:01 | NUR ---
SHIFT SUMMARY PT IS A COMFORT CARE PT; MEDICATED PER EMAR AND REPOSITION NEEDED. NO OTHER ACUTE CHANGES ON THIS SHIFT, BED IS IN THE LOWEST POSITION AND CALL LIGHT WITHIN REACH
--- NOTE | 2020-05-21 08:30 | NUR ---
PT CURRENTLY SLEEPING AND APPEARS TO BE COMFORTABLE.
--- NOTE | 2020-05-21 09:51 | NUR ---
review with nursing of symptoms and medications pt resting comfortably
--- NOTE | 2020-05-21 18:16 | NUR ---
SHIFT SUMMARY PT IS A/O X1 AND HAS BEEN VERY FATIGUED THIS SHIFT. REFUSED ORAL MEDICATIONS AND MEALS. A SHAFER WAS PLACED FOR COMFORT AND DUE TO SKIN IRRITATION IN THE GROIN. MEDICATED PER EMR FOR PAIN PRIOR TO PLACING THE SHAFER. PT IS CURRENTLY RESTING COMFORTABLY IN BED WITH HIS CALL LIGHT IN REACH.
--- NOTE | 2020-05-21 19:27 | NUR ---
AWAKENS, SMILES. HOB ELEVATED. CALL LIGHT IN REACH
--- NOTE | 2020-05-21 21:56 | NUR ---
REMAINS ON COMFORT CARE. SHAFER DRAINING. RESTING QUIETLY AT THIS TIME. CALL LIGHT IN REACH.
--- NOTE | 2020-05-21 22:09 | NUR ---
RESTING QUIETLY. CALL LIGHT IN REACH. NO NOTED S/S ACUTE DISTRESS
--- NOTE | 2020-05-22 00:39 | NUR ---
RESTING QUIETLY. SHAFER DRAINING. CALL LIGHT IN REACH
--- NOTE | 2020-05-22 00:41 | NUR ---
REPOSITIONED. REFUSED FLUIDS. CLEANED. CATH CARE DONE.
--- NOTE | 2020-05-22 05:15 | NUR ---
SHIFT SUMMARY HAS BEEN RESTING QUIETLY WITH FEW INTERRUPTIONS THIS SHIFT. HAS REFUSED OFFERS OF PO FLUIDS, SHAFER DRAINING. INCONT OF SLIGHT AMT FECES EARLIER, CHANGED. CALL LIGHT IN REACH COMFORT CARE CONTINUES
--- NOTE | 2020-05-22 09:22 | NUR ---
PATIENT ATE BREAKFAST WITH ASSISTANCE. HE IS SLEEPING IN BED AT THIS TIME
--- NOTE | 2020-05-22 14:53 | NUR ---
DAUGHTER IS AT THE BEDSIDE
--- NOTE | 2020-05-22 15:22 | NUR ---
PATIENT IS SLEEPING IN BED. THE DAUGHTER IS NO LONGER AT THE BEDSIDE
--- NOTE | 2020-05-22 18:31 | NUR ---
PATIENT IS ALERT. HE AWAKENS WHEN SPOKEN TO. THE PATIENT'S DAUGHTER VISITED WITH HIM FOR A COUPLE HOURS TODAY. PATIENT TAKES MEDICATIONS WHOLE WITH WATER. NO COMPLAINTS OF PAIN. THE PATIENT'S DAUGHTER SAID HE LOOKED COMFORTABLE. SONI IS PATENT. WILL CONTINUE TO MONITOR
--- NOTE | 2020-05-22 19:25 | NUR ---
AWAKENED. COVERS ADJUSTED FOR COMFORT. NO C/O VOICED. CALL LIGHT IN REACH. COMFORT CARE CONTINUES
--- NOTE | 2020-05-22 21:20 | NUR ---
RESTING QUIETLY, NO NOTED ACUTE DISTRESS. CALL LIGHT IN REACH
--- NOTE | 2020-05-22 23:47 | NUR ---
REPOSITIONED. FLUIDS GIVEN. CALL LIGHT IN REACH
--- NOTE | 2020-05-23 01:42 | NUR ---
SOME RESTLESSNESS, REPOSITIONED. RECOVERED WITH BLANKET. CALL LIGHT IN REACH
--- NOTE | 2020-05-23 04:25 | NUR ---
SHIFT SUMMARY REMAINS ON COMFORT CARE, WAS AWAKE A FEW TIMES, QUITE RESTLESS ATTEMPTING TO GET OUT OF BED. RECEIVED ANALGESIC AT THAT TIME, PO FLUIDS ENCOURAGED AND AFTER INITIAL REFUSAL, DRANK A FEW SIPS OF WATER. SHAFER DRAINING URINE. CALL LIGHT IN REACH. HOB ELEVATED FOR COMFORT.
--- NOTE | 2020-05-23 05:00 | NUR ---
RESTING QUIETLY. CALL LIGHT IN REACH
--- NOTE | 2020-05-23 06:04 | NUR ---
SOME OCCASIONAL COUGHING, OTHERWISE, RESTING QUIETLY WITH HOB ELEVATED FOR COMFORT. SHAFER DRAINING. CALL LIGHT IN REACH
--- NOTE | 2020-05-23 08:01 | NUR ---
PATIENT IS SLEEPING AT THIS TIME
--- NOTE | 2020-05-23 10:29 | NUR ---
PATIENT HAD A BEDBATH THIS MORNING. NO COMPLAINTS OF PAIN. PLAN TO DISCHARGE AT 1130
[2020-05-23 10:49] LABS: Influenza A, PCR Negative (NEGATIVE); Influenza B, PCR Negative (NEGATIVE); Resp Syncytial Virus, PCR Negative (NEGATIVE); SARS-Cov-2 (COVID-19) PCR, MMC Negative (NEGATIVE)
--- NOTE | 2020-05-23 11:36 | NUR ---
[facility] REPORT CALLED TO ALYSA FRY. COVID-19 TEST CAME BACK NEGATIVE. SHAFER LEFT IN PLACE. NO IV UPON DISCHARGE. PRESCRIPTIONS FOR ROXANOL AND ATIVAN SENT WITH THE PATIENT. THE PATIENT'S GLASSES SENT WITH THE PATIENT. THE PATIENT'S DAUGHTER NOTIFIED OF HIS [facility] TO [facility].
== END 2020-05-23 11:36 | DRG 280 ==
LOC: ER 13:38 → MEDS 17:41 → ENPENDDIS 05-23 10:26 → MEDS 05-23 11:36
PROVIDERS: Nurse Practitioner Acute Care; Pharmacist; Student in an Organized Health Care Education/Training Program; ADMIT Internal Medicine
DX: I11.0 Hypertensive heart disease with heart failure (principal); J96.01 Acute respiratory failure with hypoxia; I21.A1 Myocardial infarction type 2; I48.20 Chronic atrial fibrillation, unspecified; N17.9 Acute kidney failure, unspecified; I47.2 Ventricular tachycardia; I50.41 Acute combined systolic (congestive) and diastolic (congestive) heart failure; Z79.82 Long term (current) use of aspirin; Z79.02 Long term (current) use of antithrombotics/antiplatelets; Z86.73 Personal history of transient ischemic attack (TIA), and cerebral infarction without residual deficits; Z51.5 Encounter for palliative care; E11.9 Type 2 diabetes mellitus without complications; Z87.892 Personal history of anaphylaxis; F01.50 Vascular dementia, unspecified severity, without behavioral disturbance, psychotic disturbance, mood disturbance, and anxiety; Z90.79 Acquired absence of other genital organ(s); I08.1 Rheumatic disorders of both mitral and tricuspid valves; I27.20 Pulmonary hypertension, unspecified; I48.91 Unspecified atrial fibrillation; K21.9 Gastro-esophageal reflux disease without esophagitis; I25.10 Atherosclerotic heart disease of native coronary artery without angina pectoris; I73.89 Other specified peripheral vascular diseases; Z66 Do not resuscitate; Z20.828 Contact with and (suspected) exposure to other viral communicable diseases
CPT/HCPCS: 0202U; 0241U; 36415; 36600; 71045; 80048; 80061; 80069; 82803; 83036; 83735; 83880; 84484; 85025; 85610; 85730; 93005; 93010; 93306; 93925; 93930; 96365; 96375; 96376; 99285-25; A9270-GY; J1644; J1940